=== PATIENT | male | born 1980 | race Caucasian/White ===

== ENCOUNTER → 2016-03-14 | Outpatient (CLI) | payer OTHER ==
--- NOTE | 2016-03-14 20:44 | DX ---
Right Knee, 5 Views Clinical Indications: Right knee pain following skiing injury today. Findings: A fracture is not identified. The bone alignment is normal. A joint effusion is suspected. Impression: Negative for fracture. If symptomatology suggests internal derangement, MRI could be cons idered for further evaluation.
== END ==
LOC: BMCIMAGING 18:54
PROVIDERS: ATTEND Family Medicine
DX: S89.91XA Unspecified injury of right lower leg, initial encounter (principal); V00.328A Other snow-ski accident, initial encounter; Y93.23 Activity, snow (alpine) (downhill) skiing, snowboarding, sledding, tobogganing and snow tubing

== ENCOUNTER 2018-04-10 23:25 | Emergency (ER) | payer OTHER ==
[2018-04-10 23:33] VITALS: BP 160/100
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
== END 2018-04-10 23:44 ==
DX: S60.312A Abrasion of left thumb, initial encounter (principal); V89.2XXA Person injured in unspecified motor-vehicle accident, traffic, initial encounter; Y92.410 Unspecified street and highway as the place of occurrence of the external cause; F10.920 Alcohol use, unspecified with intoxication, uncomplicated